=== PATIENT | female | born 1970 | race Caucasian/White ===

== ENCOUNTER → 2016-04-21 | Outpatient (CLI) | payer OTHER ==
[~2016-04-21] MED LIST: ALBU0.08 INH; ASCO500C43 PO; ASPEC325 PO; ATOR10TA88 PO; ATR25 PO; B-CO1CAP3 PO; CLB100 PO; COEN1CAP PO; EPP3/2 IM; FERR1TAB23 PO; FLUO20CA20 PO; GABA-113 PO; MONT1TAB3 PO; MULT-506 PO; OMEG10007 PO; PANT40TA PO; PYRI100T4 PO; SENN-61 PO; SENN8.6C PO; Tumeric; ZONI100C39 PO; ZVR400 PO; [UNRECOGNIZED DRUG - CODE] PO
[2016-04-21 13:31] LABS: URINE APPEARANCE CLEAR (CLEAR); URINE BILIRUBIN NEG (NEG); URINE COLOR YELLOW; URINE EPITHELIAL CELL AUTO 0-5 /lpf (0-5); URINE NITRITE NEG (NEG); URINE PH 7.5 (4.5-7.5); URINE SPECIFIC GRAVITY 1.001 (1.000-1.030); UROBILINOGEN NEG (NEG); ZZUR CULT IF INDIC CLEAN CATCH NO
[2016-04-21 13:32] LABS: MANUAL MICROSCOPIC REQUIRED? NO; REVIEW REQ? NO
[2016-04-21 13:50] LABS: ALKALINE PHOSPHATASE 135 U/L (45-117); ALT/SGPT 24 U/L (12-78); AST/SGOT 23 U/L (15-37); TOTAL IRON BINDING CAPACITY 367 mcg/dl (250-450)
== END | disposition home or self-care (01) ==
LOC: C.LABMFLN 10:58
PROVIDERS: ATTEND Family Medicine
DX: D50.9 Iron deficiency anemia, unspecified (principal); R60.0 Localized edema

== ENCOUNTER → 2016-07-21 | Outpatient (CLI) | payer OTHER ==
[~2016-07-21] MED LIST changes: +ATOR10TA82 PO; -ATOR10TA88 PO
--- NOTE | 2016-07-21 14:49 | DIAGNOSTIC IMAGING REPORT ---
Brain MRI WITHOUT CONTRAST HISTORY: NUMBNESS, SPEECH ABNORMALITY TECHNIQUE: Multiplanar multisequence MRI of the brain was performed without the use of contrast. COMPARISON STUDY: 12/21/2015 FINDINGS: There are no areas of restricted diffusion to suggest acute infarction. The midline structures are intact. The paranasal sinuses are clear. The mastoid air cells are clear. The ventricles and sulci are within normal limits for age. There is no mass, hematoma, midline shift. The major vascular flow-voids at the skull base are well maintained. Several small foci of increased signal consistent with a component of mild chronic small vessel change. This is unaltered from the prior study. IMPRESSION: No acute intracranial abnormality. Mild chronic small vessel change unaltered from the prior study. Electronically signed by: Pete Gonzalez M.D. 07/21/2016 2:48 PM Dictated Date/Time: 07/21/2016 2:45 PM
== END | disposition home or self-care (01) ==
LOC: C.MRI 13:51
PROVIDERS: ATTEND Family Medicine
DX: R20.0 Anesthesia of skin (principal); R47.9 Unspecified speech disturbances

== ENCOUNTER → 2016-08-25 | Outpatient (CLI) | payer OTHER ==
[~2016-08-25] MED LIST changes: -ALBU0.08 INH; -ATOR10TA82 PO; +ATOR10TA88 PO; -B-CO1CAP3 PO; -CLB100 PO; -COEN1CAP PO; -Tumeric
[2016-08-25 13:16] LABS: HEMATOCRIT 39.3 % (37-47); MEAN CELL VOLUME 96.1 fL (80-100); MEAN CORPUSCULAR HEMOGLOBIN 31.3 pg (25-34); MEAN CORPUSCULAR HGB CONC 32.6 g/dl (32-36); MEAN PLATELET VOLUME 10.7 fL (7.4-10.4); PLATELET COUNT 252 K/uL (130-400); RED BLOOD COUNT 4.09 M/uL (4.2-5.4); WHITE BLOOD COUNT 6.26 K/uL (4.8-10.8)
== END | disposition home or self-care (01) ==
LOC: C.LABMFLN 09:08
PROVIDERS: ATTEND Family Medicine
DX: N39.0 Urinary tract infection, site not specified (principal); R60.0 Localized edema; D64.9 Anemia, unspecified; E55.9 Vitamin D deficiency, unspecified

== ENCOUNTER → 2016-09-13 | Outpatient (CLI) | payer OTHER ==
--- NOTE | 2016-09-13 07:50 | DIAGNOSTIC IMAGING REPORT ---
ABD/PELVIS NO IV OR ORAL CONT CLINICAL HISTORY: 46 years-old Female presenting with left adrenal adenoma, COPD, stroke. TECHNIQUE: Multidetector CT of the abdomen and pelvis was performed without the use of intravenous contrast. IV contrast: None. COMPARISON: CT of the chest from 2016. CT DOSE: The estimated cumulative dose is 296.20 mGy.cm. 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 Lung bases: Lung bases clear. No pericardial or pleural effusion. Liver: Normal noncontrast appearance. Biliary: No gross evidence of biliary ductal dilatation. Gallbladder surgically absent. Pancreas: Normal. Spleen: Normal. Adrenal glands: Right adrenal gland normal. Subcentimeter nodule in the medial limb of the left adrenal gland with a density consistent with a benign adrenal adenoma. This is unchanged in size from prior CT from 2016. Kidneys and ureters: Nonobstructing right renal calculus at the lower pole measuring 3 mm. No hydronephrosis. Ureters normal. Gastrointestinal tract: Mild stool burden throughout normal caliber colon. Normal appendix. No bowel obstruction. 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 Distal anastomosis widely patent. Peritoneal cavity: No free fluid or intraperitoneal gas. Bladder: Incompletely evaluated secondary to underdistention. Pelvic organs: Uterus likely surgically absent. No adnexal masses. Vasculature: Mild atherosclerosis of the normal caliber abdominal aorta. Lymph nodes: No enlarged lymph nodes in the abdomen or pelvis within the limitations of noncontrast technique. Abdominal wall: Small fat-containing umbilical hernia. Musculoskeletal: Focal degenerative changes at L4-5 with osseous neural foraminal narrowing. IMPRESSION: 1. Subcentimeter left adrenal nodule consistent with a benign adenoma. 2. Nonobstructing 3 mm right renal calculus. 3. Postsurgical changes of antecolic Dequan-en-Y gastric bypass without complication. Electronically signed by: Radames Baeza M.D. 09/13/2016 7:49 AM Dictated Date/Time: 09/13/2016 7:40 AM
--- NOTE | 2016-09-13 10:04 | DIAGNOSTIC IMAGING REPORT ---
BARIUM SWALLOW CLINICAL HISTORY: Dysphagia. Gastric bypass. COMPARISON STUDY: CT of the abdomen and pelvis performed earlier today. FLUOROSCOPY TIME: 1.6 minutes. FINDINGS: 24 fluoroscopic images were obtained. Esophageal motility was normal. There are findings consistent with a Dequan-en-Y gastric bypass. A small hiatal hernia is noted. Mild gastroesophageal reflux was noted. A 13 mm barium tablet showed persistent holdup at the gastrojejunostomy. However, no significant narrowing at the anastomosis was noted on the remainder of the images and contrast passed freely into the jejunum. IMPRESSION: 1. Postsurgical findings consistent with Dequan-en-Y gastric bypass. No contrast extravasation. Persistent holdup of a 13 mm barium tablet at the gastrojejunostomy however no significant stenosis identified at the anastomosis on the remainder of the images. Contrast passed freely into the jejunum. 2. Small hiatal hernia with mild gastroesophageal reflux. Electronically signed by: Gael Taylor M.D. 09/13/2016 8:13 AM Dictated Date/Time: 09/13/2016 8:08 AM
== END | disposition home or self-care (01) ==
LOC: C.CTS 07:22
PROVIDERS: ATTEND Family Medicine
DX: R13.10 Dysphagia, unspecified (principal); D35.02 Benign neoplasm of left adrenal gland; N20.0 Calculus of kidney; K44.9 Diaphragmatic hernia without obstruction or gangrene

== ENCOUNTER → 2016-10-17 | Outpatient (CLI) | payer OTHER ==
[2016-10-17 13:46] LABS: URINE APPEARANCE CLEAR (CLEAR); URINE BILIRUBIN NEG (NEG); URINE COLOR YELLOW; URINE EPITHELIAL CELL AUTO >30 /lpf (0-5); URINE NITRITE NEG (NEG); URINE SPECIFIC GRAVITY 1.009 (1.000-1.030); UROBILINOGEN NEG (NEG); ZZUR CULT IF INDIC CLEAN CATCH NO
[2016-10-17 13:49] LABS: MANUAL MICROSCOPIC REQUIRED? NO; REVIEW REQ? NO
== END | disposition home or self-care (01) ==
LOC: C.LABMFLN 11:47
PROVIDERS: ATTEND Family Medicine
DX: D35.02 Benign neoplasm of left adrenal gland (principal); R30.0 Dysuria

== ENCOUNTER → 2017-03-23 | Outpatient (CLI) | payer OTHER ==
[~2017-03-23] MED LIST changes: +ATOR10TA82 PO; -ATOR10TA88 PO; -ZONI100C39 PO
== END | disposition home or self-care (01) ==
LOC: C.LABMFLN 10:58
PROVIDERS: ATTEND Family Medicine
DX: J02.9 Acute pharyngitis, unspecified (principal)

== ENCOUNTER → 2017-05-22 | Outpatient (CLI) | payer OTHER ==
[2017-05-22 18:09] LABS: HEMATOCRIT 37.8 % (37-47); HEMOGLOBIN 12.9 g/dL (12.0-16.0); MEAN CORPUSCULAR HEMOGLOBIN 32.4 pg (25-34); MEAN CORPUSCULAR HGB CONC 34.1 g/dl (32-36); PLATELET COUNT 353 K/uL (130-400); RED CELL DISTRIBUTION WIDTH CV 13.1 % (11.5-14.5); WHITE BLOOD COUNT 9.63 K/uL (4.8-10.8)
[2017-05-22 18:36] LABS: ALBUMIN 3.6 gm/dl (3.4-5.0); ALT/SGPT 25 U/L (12-78); AST/SGOT 24 U/L (15-37); BLOOD UREA NITROGEN 4 mg/dl (7-18); CALCIUM 8.7 mg/dl (8.5-10.1); CARBON DIOXIDE 29 mmol/L (21-32); CHOLESTEROL 157 mg/dl (0-200); CREATININE 0.65 mg/dl (0.60-1.20); GLUCOSE 81 mg/dl (70-99); POTASSIUM 3.2 mmol/L (3.5-5.1); SODIUM 135 mmol/L (136-145)
[2017-05-22 18:43] LABS: ALKALINE PHOSPHATASE 118 U/L (45-117); LDL CHOLESTEROL CALCULATED 85 mg/dl; TOTAL PROTEIN 6.6 gm/dl (6.4-8.2); TRANSFERRIN 203 mg/dl (200-360)
== END | disposition home or self-care (01) ==
LOC: C.LABMFLN 15:04
PROVIDERS: ATTEND Family Medicine
DX: E78.1 Pure hyperglyceridemia (principal); R73.02 Impaired glucose tolerance (oral); L29.9 Pruritus, unspecified; G50.0 Trigeminal neuralgia; R51 Headache